=== PATIENT | female | born 1990 | race Caucasian/White ===

== ENCOUNTER 2016-09-28 01:30 | Emergency (ER) | payer OTHER ==
[2016-09-28 02:52] LABS: ANION GAP 11 MEQ/L (8-16); BLOOD UREA NITROGEN 10 MG/DL (7-18); CALCIUM LEVEL 8.4 MG/DL (8.5-10.1); CARBON DIOXIDE LEVEL 22 MEQ/L (21-32); CHLORIDE LEVEL 107 MEQ/L (98-107); CREATININE FOR GFR 0.71 MG/DL (0.55-1.02); GLOMERULAR FILTRATION RATE > 60.0 (>60); GLUCOSE, FASTING 167 MG/DL (70-105); MAGNESIUM LEVEL 1.8 MG/DL (1.8-2.4); POTASSIUM SERUM 4.2 MEQ/L (3.5-5.1); SODIUM LEVEL 140 MEQ/L (136-145); T UPTAKE 29 % (30-39); THYROXINE (T4) 10.1 UG/DL (4.5-12.0)
--- NOTE | 2016-09-28 03:55 | EDDOCDS ---
Nurse's Notes [facility] Name: Maeve Wilson Age: 25 yrs Sex: Female : 1990 Arrival Date: 09/28/2016 Time: 01:30 Bed TR1 Private MD: Diagnosis: Palpitations-associated with first time medication use Presentation: 09/28 01:34 Presenting complaint: Patient states: Patient reports that she started a new medication jmb last evening and woke up shaky, nauseas. Called nurse line and informed to come in to be seen. Adult Sepsis Screening: The patient does not have new or worsening altered mentation. Patient's respiratory rate is less than 22. Systolic blood pressure is greater than 100. Patient has a qSOFA score of 0- Negative Sepsis Screen. Suicide/Homicide risk assessment- the patient denies having any suicidal and/or homicidal ideations and does not present with any other emotional, behavioral or mental health complaints. Status: The patient is a dependent. Transition of care: patient was not received from another setting of care. 01:34 Acuity: SHERRI Level 3 [facility] 01:34 Method Of Arrival: Walkin/Carried/Asstd [facility] Triage Assessment: 01:38 General: Appears in no apparent distress. Pain: Denies pain. Pt Declines HIV testing. [facility] Neurological: Level of Consciousness is awake, alert, obeys commands, Oriented to person, place, time, Speech is normal, Facial symmetry appears normal, Facial symmetry: tongue is midline. Respiratory: Airway is patent Respiratory effort is even, unlabored, Respiratory pattern is regular, symmetrical. Derm: Skin is pink, warm & dry. Musculoskeletal: Range of motion intact in all extremities. Signs and Symptoms of Compartment Syndrome:. 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 metformin 500 mg Oral Tb24 1 tab once daily 2. Sertraline 50 mg daily 3. jalessa 0.15 mg daily - PMHx: Diabetes - NIDDM: controlled; Anxiety; - PSHx: none; - Social history: Smoking status: Patient states was never smoker of tobacco. No barriers to communication noted, The patient speaks fluent Upper Sorbian, Speaks appropriately for age. - Family history: Not pertinent. - : The pt / caregiver states he / she is not on anticoagulants. Home medication list is obtained from the patient. - Exposure Risk Screening:: None identified. Screenin:16 Screening information is obtained from the patient. Fall risk: No risks identified. [facility] Assistance ADL's: requires no assistance with activities of daily living. Abuse/DV Screen: The patient / caregiver reports he/she is: not in a situation that causes fear, pain or injury. Nutritional screening: No deficits noted. Advance Directives: Further advance directive information is declined. home support is adequate. Assessment: 03:16 General: Appears in no apparent distress, Discharge instructions reviewed with pt sls1 including stopping medications until follow up with prescribing physician verbalizes understanding of all instructions, d/c home ambulatory. Pain: Denies pain. Neurological: Level of Consciousness is awake, alert. Respiratory: Airway is patent Respiratory effort is even, unlabored, Respiratory pattern is regular, symmetrical. Derm: No deficits noted. Vital Signs: 01:34 BP 152 / 95; Pulse 86; Resp 18; Temp 98.6(O); Pulse Ox 96% on R/A; Weight 74.39 kg (R); [facility] Height 5 ft. 4 in. (162.56 cm) (R); Pain 0/10; 03:16 BP 142 / 64; Pulse 82; Resp 18; Temp 98.0(T); Pulse Ox 99% ; [facility] 01:34 Body Mass Index 28.15 (74.39 kg, 162.56 cm) [facility] Vitals: 01:34 Log In Time: September 28, 2016 at 01:32. [facility] ED Course: 01:32 Patient visited by Alysia Simmons. [facility] 01:32 Patient moved to Waiting [facility] 01:34 Triage Initiated [facility] 01:39 Patient moved to 11 [facility] 01:40 Ming Pizarro DO is Attending Physician. cs11 01:40 Veronika Black,WILLIE is Primary Nurse. 6 01:40 Patient visited by Ming Pizarro DO. cs11 02:33 [facility] Payment Agreement was scanned into [employer] and attached to record. [facility] 03:16 Patient moved to [place] [address] 03:16 The patient / caregiver is instructed regarding the plan of care and ED course. Patient sls1 has correct armband on for positive identification. 03:16 No IV's were initiated during this patient's visit. No procedures done that require [facility] assistance. 03:19 Patient visited by Yamilet Leung RN. [facility] Order Results: Lab Order: MED Profile; SPEC'M 09/28/16 02:11 Test: GLUCOSE, FASTING; Value: 167; Range: 70-105; Abnormal: Above high normal; Units: MG/DL; Status: F Test: BLOOD UREA NITROGEN; Value: 10; Range: 7-18; Units: MG/DL; Status: F Test: CREATININE FOR GFR; Value: 0.71; Range: 0.55-1.02; Units: MG/DL; Status: F Test: GLOMERULAR FILTRATION RATE; Value: > 60.0; Range: >60; Status: F Test: SODIUM LEVEL; Value: 140; Range: 136-145; Units: MEQ/L; Status: F Test: POTASSIUM SERUM; Value: 4.2; Range: 3.5-5.1; Units: MEQ/L; Status: F Test: CHLORIDE LEVEL; Value: 107; Range: 98-107; Units: MEQ/L; Status: F Test: CARBON DIOXIDE LEVEL; Value: 22; Range: 21-32; Units: MEQ/L; Status: F Test: ANION GAP; Value: 11; Range: 8-16; Units: MEQ/L; Status: F Test: CALCIUM LEVEL; Value: 8.4; Range: 8.5-10.1; Abnormal: Below low normal; Units: MG/DL; Status: F Test Note: ; Units are mL/min/1.73 m2 Chronic Kidney Disease Staging per NKF: Stage I & II GFR >=60 Normal to Mildly Decreased Stage III GFR 30-59 Moderately Decreased Stage IV GFR 15-29 Severely Decreased Stage V GFR <15 Very Little GFR Left ESRD GFR <15 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 cs11 03:16 Discharge Assessment: Patient awake, alert and oriented x 3. No cognitive and/or sls1 functional deficits noted. Patient verbalized understanding of disposition instructions. patient administered narcotics - no. The following High Risk Discharge criteria are identified: None. Discharged to home ambulatory. Condition: stable. Discharge instructions given to patient, Instructed on discharge instructions, follow up and referral plans. Demonstrated understanding of instructions, Pt was receptive of discharge instructions/ teaching. No special radiology studies were completed. Property sent home with patient. 03:54 Patient left the ED. sls1 Signatures: Yamilet Leung RN RN sls1 Ming Pizarro, DO cs11 Fareed Vera RN RN jmb Beck, Gabriela gjb Palmer, JessicaRN RN jp6 Corrections: (The following items were deleted from the chart) 01:41 01:38 Home Meds: lina 0.15 mg daily; jaun zamorano MTDD
--- NOTE | 2016-09-28 03:55 | EDDOCDS ---
Physician Documentation [facility] Name: Maeve Wilson Age: 25 yrs Sex: Female : 1990 Arrival Date: 09/28/2016 Time: 01:30 Bed TR1 Private MD: Disposition: 09/28/16 03:11 Discharged to Home/Self Care. Impression: Palpitations - associated with first time medication use. - Condition is Stable. - Medication Reconciliation, Local Pharmacy Hours form. - Follow up: Private Physician; When: Call to arrange an appointment; Reason: Recheck today's complaints. - Problem is new. - Symptoms have improved. - Notes: Do not continue medication until you speak to your precribing physician Historical: - Allergies: No known drug Allergies; - Home Meds: 1. metformin 500 mg Oral Tb24 1 tab once daily 2. Sertraline 50 mg daily 3. jalessa 0.15 mg daily - PMHx: Diabetes - NIDDM: controlled; Anxiety; - PSHx: none; - Social history: Smoking status: Patient states was never smoker of tobacco. No barriers to communication noted, The patient speaks fluent Arabic, Speaks appropriately for age. - Family history: Not pertinent. - : The pt / caregiver states he / she is not on anticoagulants. Home medication list is obtained from the patient. - Exposure Risk Screening:: None identified. 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 4 in. (162.56 cm) (R); Pain 0/10; 03:16 BP 142 / 64; Pulse 82; Resp 18; Temp 98.0(T); Pulse Ox 99% ; sls1 01:34 Body Mass Index 28.15 (74.39 kg, 162.56 cm) [facility] MDM: 01:33 ECG WITH READING ER PHYS+CARDIAG ordered. EDMS 01:42 MED Profile Ordered. EDMS 01:42 Magnesium Level Ordered. EDMS 02:06 Financial registration complete. hs2 02:20 THYROID PROFILE Ordered. EDMS 02:33 [facility] Payment Agreement was scanned into [employer] and attached to record. gjb 03:06 MED Profile Reviewed. cs11 03:06 THYROID PROFILE Reviewed. cs11 03:06 Magnesium Level Reviewed. cs11 Signatures: Dispatcher [employer] EDMS Yamilet Leung RN RN sls1 Ming Pizarro, DO DO cs11 Fareed Vera RN RN jmb Beck, Gabriela b Magaly Simons, Reg Reg hs2 The chart was reviewed and I authenticate all verbal orders and agree with the evaluation and treatment provided.Corrections: (The following items were deleted from the chart) 01:41 01:38 Home Meds: lina 0.15 mg daily; jaun zamorano 02:19 02:09 THYROID PROFILE+LAB ordered. EDMS EDMS Attachments: 02:33 [facility] Payment Agreement loi MTDD
--- NOTE | 2016-09-28 10:28 | ECGEPIP ---
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
--- NOTE | 2016-09-30 04:54 | EDDOCDS ---
Physician Documentation [facility] Name: Maeve Wilson Age: 25 yrs Sex: Female : 1990 Arrival Date: 09/28/2016 Time: 01:30 Bed TR1 Private MD: Disposition: 09/28/16 03:11 Discharged to Home/Self Care. Impression: Palpitations - associated with first time medication use. - Condition is Stable. - Medication Reconciliation, Local Pharmacy Hours form. - Follow up: Private Physician; When: Call to arrange an appointment; Reason: Recheck today's complaints. - Problem is new. - Symptoms have improved. - Notes: Do not continue medication until you speak to your precribing physician Historical: - Allergies: No known drug Allergies; - Home Meds: 1. metformin 500 mg Oral Tb24 1 tab once daily 2. Sertraline 50 mg daily 3. jalessa 0.15 mg daily - PMHx: Diabetes - NIDDM: controlled; Anxiety; - PSHx: none; - Social history: Smoking status: Patient states was never smoker of tobacco. No barriers to communication noted, The patient speaks fluent Upper Sorbian, Speaks appropriately for age. - Family history: Not pertinent. - : The pt / caregiver states he / she is not on anticoagulants. Home medication list is obtained from the patient. - Exposure Risk Screening:: None identified. 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 Vital Signs: 01:34 BP 152 / 95; Pulse 86; Resp 18; Temp 98.6(O); Pulse Ox 96% on R/A; Weight 74.39 kg / jmb 164 lbs (R); Height 5 ft. 4 in. (162.56 cm) (R); Pain 0/10; 03:16 BP 142 / 64; Pulse 82; Resp 18; Temp 98.0(T); Pulse Ox 99% ; sls1 01:34 Body Mass Index 28.15 (74.39 kg, 162.56 cm) [facility] MDM: 01:33 ECG WITH READING ER PHYS+CARDIAG ordered. EDMS 01:42 MED Profile Ordered. EDMS 01:42 Magnesium Level Ordered. EDMS 02:06 Financial registration complete. hs2 02:20 THYROID PROFILE Ordered. EDMS 02:33 [facility] Payment Agreement was scanned into [employer] and attached to record. gjb 03:06 MED Profile Reviewed. cs11 03:06 THYROID PROFILE Reviewed. cs11 03:06 Magnesium Level Reviewed. [facility] 09:35 T-Sheet-- Draft Copy was scanned into [employer] and attached to record. [facility] 09/29 12:02 ECG/EKG was scanned into [employer] and attached to record. gb Signatures: Dispatcher [employer] EDMS Albertina Cox, Reg Reg gb Yamilet Leung RN RN sls1 Ming Pizarro, DO DO cs11 Fareed VeraRN RN Alysia Angel gjb Magaly Simons, Reg Reg hs2 Suellen Marrero [facility] The chart was reviewed and I authenticate all verbal orders and agree with the evaluation and treatment provided.Corrections: (The following items were deleted from the chart) 09/28 01:41 01:38 Home Meds: lina 0.15 mg daily; jaun zamorano 02:19 02:09 THYROID PROFILE+LAB ordered. EDMS EDMS Attachments: 02:33 [facility] Payment Agreement [facility] 09:35 T-Sheet-- Draft Copy [facility] 09/29 12:02 ECG/EKG gb Chart Complete MTDD
--- NOTE | 2016-09-30 04:54 | EDDOCDS ---
[facility] Notes [facility] Name: Kip Vicente Age: 25 yrs Sex: Female : 1990 Arrival Date: 09/28/2016 Time: 01:30 Bed TR1 Private MD: Diagnosis: Palpitations-associated with first time medication use Presentation: 09/28 01:34 Presenting complaint: Patient states: Patient reports that she started a new medication jmb last evening and woke up shaky, nauseas. Called nurse line and informed to come in to be seen. Adult Sepsis Screening: The patient does not have new or worsening altered mentation. Patient's respiratory rate is less than 22. Systolic blood pressure is greater than 100. Patient has a qSOFA score of 0- Negative Sepsis Screen. Suicide/Homicide risk assessment- the patient denies having any suicidal and/or homicidal ideations and does not present with any other emotional, behavioral or mental health complaints. Status: The patient is a dependent. Transition of care: patient was not received from another setting of care. 01:34 Acuity: SHERRI Level 3 [facility] 01:34 Method Of Arrival: Walkin/Carried/Asstd [facility] Triage Assessment: 01:38 General: Appears in no apparent distress. Pain: Denies pain. Pt Declines HIV testing. [facility] Neurological: Level of Consciousness is awake, alert, obeys commands, Oriented to person, place, time, Speech is normal, Facial symmetry appears normal, Facial symmetry: tongue is midline. Respiratory: Airway is patent Respiratory effort is even, unlabored, Respiratory pattern is regular, symmetrical. Derm: Skin is pink, warm & dry. Musculoskeletal: Range of motion intact in all extremities. Signs and Symptoms of Compartment Syndrome:. 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 metformin 500 mg Oral Tb24 1 tab once daily 2. Sertraline 50 mg daily 3. jalessa 0.15 mg daily - PMHx: Diabetes - NIDDM: controlled; Anxiety; - PSHx: none; - Social history: Smoking status: Patient states was never smoker of tobacco. No barriers to communication noted, The patient speaks fluent Sinhala, Speaks appropriately for age. - Family history: Not pertinent. - : The pt / caregiver states he / she is not on anticoagulants. Home medication list is obtained from the patient. - Exposure Risk Screening:: None identified. Screenin:16 Screening information is obtained from the patient. Fall risk: No risks identified. [facility] Assistance ADL's: requires no assistance with activities of daily living. Abuse/DV Screen: The patient / caregiver reports he/she is: not in a situation that causes fear, pain or injury. Nutritional screening: No deficits noted. Advance Directives: Further advance directive information is declined. home support is adequate. Assessment: 03:16 General: Appears in no apparent distress, Discharge instructions reviewed with pt sls1 including stopping medications until follow up with prescribing physician verbalizes understanding of all instructions, d/c home ambulatory. Pain: Denies pain. Neurological: Level of Consciousness is awake, alert. Respiratory: Airway is patent Respiratory effort is even, unlabored, Respiratory pattern is regular, symmetrical. Derm: No deficits noted. Vital Signs: 01:34 BP 152 / 95; Pulse 86; Resp 18; Temp 98.6(O); Pulse Ox 96% on R/A; Weight 74.39 kg (R); [facility] Height 5 ft. 4 in. (162.56 cm) (R); Pain 0/10; 03:16 BP 142 / 64; Pulse 82; Resp 18; Temp 98.0(T); Pulse Ox 99% ; [facility] 01:34 Body Mass Index 28.15 (74.39 kg, 162.56 cm) [facility] Vitals: 01:34 Log In Time: September 28, 2016 at 01:32. [facility] ED Course: 01:32 Patient visited by Alysia Simmons. [facility] 01:32 Patient moved to Waiting [facility] 01:34 Triage Initiated [facility] 01:39 Patient moved to 11 [facility] 01:40 Ming Marquez DO is Attending Physician. cs11 01:40 Veronika Black,WILLIE is Primary Nurse. 6 01:40 Patient visited by Ming Marquez DO. cs11 02:33 [facility] Payment Agreement was scanned into [employer] and attached to record. [facility] 03:16 Patient moved to [place] [address] 03:16 The patient / caregiver is instructed regarding the plan of care and ED course. Patient sls1 has correct armband on for positive identification. 03:16 No IV's were initiated during this patient's visit. No procedures done that require [facility] assistance. 03:19 Patient visited by Yamilet Leung RN. [facility] 09:35 T-Sheet-- Draft Copy was scanned into [employer] and attached to record. [facility] 10:34 EKG-ADULT Returned. [facility] 09/29 12:02 ECG/EKG was scanned into [employer] and attached to record. gb Order Results: Lab Order: MED Profile; SPEC'M 09/28/16 02:11 Test: GLUCOSE, FASTING; Value: 167; Range: 70-105; Abnormal: Above high normal; Units: MG/DL; Status: F Test: BLOOD UREA NITROGEN; Value: 10; Range: 7-18; Units: MG/DL; Status: F Test: CREATININE FOR GFR; Value: 0.71; Range: 0.55-1.02; Units: MG/DL; Status: F Test: GLOMERULAR FILTRATION RATE; Value: > 60.0; Range: >60; Status: F Test: SODIUM LEVEL; Value: 140; Range: 136-145; Units: MEQ/L; Status: F Test: POTASSIUM SERUM; Value: 4.2; Range: 3.5-5.1; Units: MEQ/L; Status: F Test: CHLORIDE LEVEL; Value: 107; Range: 98-107; Units: MEQ/L; Status: F Test: CARBON DIOXIDE LEVEL; Value: 22; Range: 21-32; Units: MEQ/L; Status: F Test: ANION GAP; Value: 11; Range: 8-16; Units: MEQ/L; Status: F Test: CALCIUM LEVEL; Value: 8.4; Range: 8.5-10.1; Abnormal: Below low normal; Units: MG/DL; Status: F Test Note: ; Units are mL/min/1.73 m2 Chronic Kidney Disease Staging per NKF: Stage I & II GFR >=60 Normal to Mildly Decreased Stage III GFR 30-59 Moderately Decreased Stage IV GFR 15-29 Severely Decreased Stage V GFR <15 Very Little GFR Left ESRD GFR <15 on 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 Lab Order: Magnesium Level; SPEC'M 09/28/16 02:11 Test: MAGNESIUM LEVEL; Value: 1.8; Range: 1.8-2.4; Units: MG/DL; Status: F Lab Order: THYROID PROFILE; SPEC'M 09/28/16 02:11 Test: T UPTAKE; Value: 29; Range: 30-39; Abnormal: Below low normal; Units: %; Status: F Test: THYROXINE (T4); Value: 10.1; Range: 4.5-12.0; Units: UG/DL; Status: F Test: FREE THYROXINE INDEX; Value: 2.9; Range: 1.3-4.8; Units: %; Status: F Test: THYROID STIMULATING HORMONE; Value: 1.670; Range: 0.358-3.740; Units: uIU/ML; Status: F Radiology Order: EKG-ADULT Test: EKG-ADULT REASON FOR EXAMINATION: palpitations; Stationary ECG Study; [facility] - ED; ; Test Date: 2016-09-28; Pat Name: KIP VICENTE Department:; Room: -; 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 cs11 03:16 Discharge Assessment: Patient awake, alert and oriented x 3. No cognitive and/or sls1 functional deficits noted. Patient verbalized understanding of disposition instructions. patient administered narcotics - no. The following High Risk Discharge criteria are identified: None. Discharged to home ambulatory. Condition: stable. Discharge instructions given to patient, Instructed on discharge instructions, follow up and referral plans. Demonstrated understanding of instructions, Pt was receptive of discharge instructions/ teaching. No special radiology studies were completed. Property sent home with patient. 03:54 Patient left the ED. sls1 Signatures: Dispatcher [employer] EDMS Albertina Cox, Yamilet Guzman RN RN sls1 Ming Marquez DO DO cs11 Fareed Vera RN RN jmb Beck, Gabriela gjb Palmer, Jessica, RN RN jp6 Suellen Marrero Corrections: (The following items were deleted from the chart) 01:41 01:38 Home Meds: lina 0.15 mg daily; jaun zamorano Chart Complete MTDD
--- NOTE | 2016-09-30 04:54 | EDDOCDS ---
Physician Documentation [facility] Name: Maeve Wilson Age: 25 yrs Sex: Female : 1990 Arrival Date: 09/28/2016 Time: 01:30 Bed TR1 Private MD: Disposition: 09/28/16 03:11 Discharged to Home/Self Care. Impression: Palpitations - associated with first time medication use. - Condition is Stable. - Medication Reconciliation, Local Pharmacy Hours form. - Follow up: Private Physician; When: Call to arrange an appointment; Reason: Recheck today's complaints. - Problem is new. - Symptoms have improved. - Notes: Do not continue medication until you speak to your precribing physician Historical: - Allergies: No known drug Allergies; - Home Meds: 1. metformin 500 mg Oral Tb24 1 tab once daily 2. Sertraline 50 mg daily 3. jalessa 0.15 mg daily - PMHx: Diabetes - NIDDM: controlled; Anxiety; - PSHx: none; - Social history: Smoking status: Patient states was never smoker of tobacco. No barriers to communication noted, The patient speaks fluent [place], Speaks appropriately for age. - Family history: Not pertinent. - : The pt / caregiver states he / she is not on anticoagulants. Home medication list is obtained from the patient. - Exposure Risk Screening:: None identified. 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 Vital Signs: 01:34 BP 152 / 95; Pulse 86; Resp 18; Temp 98.6(O); Pulse Ox 96% on R/A; Weight 74.39 kg / jmb 164 lbs (R); Height 5 ft. 4 in. (162.56 cm) (R); Pain 0/10; 03:16 BP 142 / 64; Pulse 82; Resp 18; Temp 98.0(T); Pulse Ox 99% ; sls1 01:34 Body Mass Index 28.15 (74.39 kg, 162.56 cm) [facility] MDM: 01:33 ECG WITH READING ER PHYS+CARDIAG ordered. EDMS 01:42 MED Profile Ordered. EDMS 01:42 Magnesium Level Ordered. EDMS 02:06 Financial registration complete. hs2 02:20 THYROID PROFILE Ordered. EDMS 02:33 [facility] Payment Agreement was scanned into [employer] and attached to record. gjb 03:06 MED Profile Reviewed. cs11 03:06 THYROID PROFILE Reviewed. cs11 03:06 Magnesium Level Reviewed. [facility] 09:35 T-Sheet-- Draft Copy was scanned into [employer] and attached to record. [facility] 09/29 12:02 ECG/EKG was scanned into [employer] and attached to record. gb Signatures: Dispatcher [employer] EDMS Albertina Cox, Reg Reg gb Yamilet Leung RN RN sls1 Ming Pizarro, DO DO cs11 Fareed VeraRN RN Alysia Angel gjb Magaly Simons, Reg Reg hs2 Suellen Marrero [facility] The chart was reviewed and I authenticate all verbal orders and agree with the evaluation and treatment provided.Corrections: (The following items were deleted from the chart) 09/28 01:41 01:38 Home Meds: lina 0.15 mg daily; jaun zamorano 02:19 02:09 THYROID PROFILE+LAB ordered. EDMS EDMS Attachments: 02:33 [facility] Payment Agreement [facility] 09:35 T-Sheet-- Draft Copy [facility] 09/29 12:02 ECG/EKG gb Chart Complete MTDD
== END 2016-09-28 03:54 | disposition home or self-care (01) ==
LOC: M ED 01:30
DX: R00.2 Palpitations (principal); T43.295A Adverse effect of other antidepressants, initial encounter; E11.9 Type 2 diabetes mellitus without complications; F41.9 Anxiety disorder, unspecified; Z79.899 Other long term (current) drug therapy

== ENCOUNTER → 2017-01-10 | Outpatient (REF) | payer OTHER | LOC: M SFHCLERA 10:12 | PROVIDERS: ATTEND Physician Assistant | DX: R30.0 Dysuria (principal); N89.8 Other specified noninflammatory disorders of vagina | CPT/HCPCS: 87070; 87086; 87491; 87591; G0463 ==

== ENCOUNTER → 2017-05-17 | Outpatient (REF) | payer OTHER ==
[2017-05-20 14:15] LABS: HSV TYPE I IgM AB <1:10 titer (<1:10); HSV TYPE II IgM ABY <1:10 titer (<1:10)
== END ==
LOC: M SFHCLERA 09:38
PROVIDERS: ATTEND Nurse Practitioner Family
DX: K13.79 Other lesions of oral mucosa (principal)

== ENCOUNTER → 2017-07-16 | Outpatient (REF) | payer OTHER | LOC: M LAB REF 13:19 | PROVIDERS: ATTEND Physician Assistant | DX: J02.9 Acute pharyngitis, unspecified (principal) ==

== ENCOUNTER 2018-04-01 01:12 | Emergency (ER) | payer OTHER ==
[2018-04-01 02:57] LABS: BASO % 0.3 % (0.0-1.0); EOS # 0.3 10^3/uL (0.0-0.50); EOS % 2.1 % (0.0-3.0); HEMATOCRIT 37.8 % (36.0-47.0); HEMOGLOBIN 13.6 g/dl (12.0-15.5); IMMATURE GRANULOCYTE % 0.3 % (0-3.0); LYMPH # 2.8 10^3/uL (1.5-6.5); LYMPH % 23.6 % (24.0-44.0); MEAN CORPUSCULAR HEMOGLOBIN 30.6 pg (27.0-33.0); MEAN CORPUSCULAR VOLUME 85.1 fl (80.0-96.0); MONO # 0.8 10^3/uL (0.0-0.8); NEUTROPHILS % 66.7 % (36.0-66.0); PLATELET COUNT, AUTOMATED 312 10^3/uL (150-450); RED BLOOD COUNT 4.44 10^6/uL (4.00-5.40)
[2018-04-01 03:12] LABS: INR 0.85; PROTHROMBIN TIME 11.7 SECONDS (12.1-14.4)
[2018-04-01 03:13] LABS: PARTIAL THROMBOPLASTIN TIME 22.7 SECONDS (25.4-37.6)
[2018-04-01 03:21] LABS: ALBUMIN 3.2 GM/DL (3.2-5.2); ALBUMIN/GLOBULIN RATIO 0.89 (1.00-1.93); ALKALINE PHOSPHATASE 49 U/L (45-117); ALT/SGPT 26 U/L (12-78); ANION GAP 14 MEQ/L (8-16); AST/SGOT 18 U/L (7-37); BILIRUBIN,DIRECT 0.1 MG/DL (0.0-0.2); BILIRUBIN,TOTAL 0.6 MG/DL (0.2-1.0); BLOOD UREA NITROGEN 11 MG/DL (7-18); CALCIUM LEVEL 8.3 MG/DL (8.5-10.1); CARBON DIOXIDE LEVEL 20 MEQ/L (21-32); CHLORIDE LEVEL 107 MEQ/L (98-107); CPK CREATINE PHOSPHOKINASE 89 U/L (26-192); CREATININE FOR GFR 0.84 MG/DL (0.55-1.30); GLOMERULAR FILTRATION RATE > 60.0 (>60); GLUCOSE, FASTING 160 MG/DL (70-100); LIPASE 221 U/L (73-393); POTASSIUM SERUM 3.7 MEQ/L (3.5-5.1); SODIUM LEVEL 141 MEQ/L (136-145); TOTAL PROTEIN 6.8 GM/DL (6.4-8.2); TROPONIN I < 0.02 NG/ML (< 0.10)
[2018-04-01 03:22] LABS: MB/CK RELATIVE INDEX 1.12 (< OR =4)
[2018-04-01] MEDS ORDERED: ISOVUE-370 76% 100ML VIAL (Q9967) As Ordered (03:42)
[2018-04-01] MEDS: PANTOPRAZOLE 40MG INJ (PROTONIX) (C9113) IV (04:12)
[2018-04-01] MEDS: LOSARTAN 50 MG TAB PO (04:12)
[2018-04-01] MEDS: GI COCKTAIL 50ML BTL(HYOSCYAMINE/MAALOX/LIDOCAINE VISCOUS)(1:3:1) PO (04:12)
[2018-04-01] MEDS: ASPIRIN 81 MG CHEW TABLET PO (04:12)
== END 2018-04-01 05:15 | disposition home or self-care (01) ==
LOC: M ED 01:12
DX: R07.9 Chest pain, unspecified (principal); E11.9 Type 2 diabetes mellitus without complications; I10 Essential (primary) hypertension; E78.5 Hyperlipidemia, unspecified; Z79.84 Long term (current) use of oral hypoglycemic drugs; Z79.3 Long term (current) use of hormonal contraceptives; Z79.899 Other long term (current) drug therapy
CPT/HCPCS: C9113